=== PATIENT | female | born 1940 | race Caucasian/White ===

== ENCOUNTER → 2018-01-15 22:01 | Outpatient (REF) | payer MEDICARE, OTHER, SELFPAY ==
[2018-01-15 22:05] LABS: Bacteria Urine None Seen; RBC Urine None Seen (0-5/HPF); WBC Urine None Seen (0-5/HPF)
[2018-01-15 22:56] LABS: Alanine Aminotransferase 32 IU/L (9-52); Albumin 4.3 g/dL (3.5-5.0); Albumin Globulin Ratio 1.6 (1.0-2.8); Alkaline Phosphatase 63 U/L (38-126); Aspartate Aminotransferase 25 IU/L (14-36); BUN Creatinine Ratio 31.4 (6-22); Bilirubin Total 0.9 mg/dL (0.2-1.3); Blood Urea Nitrogen 22 mg/dL (7-17); Carbon Dioxide 27 mmol/L (22-32); Chloride 103 mmol/L (98-107); Cholesterol 154 mg/dL (140-199); Estimated Glomerular Filt Rate > 60.0 mL/min (>60); Globulin 2.7 g/dL (1.7-4.1); Glucose 89 mg/dL (80-110); HDL Cholesterol 67 mg/dL (40-60); HEMOLYSIS < 15 (0-50); LDL Cholesterol Calculated 75 mg/dL (<100); Potassium 4.4 mmol/L (3.4-5.1); Sodium 142 mmol/L (137-145); Triglycerides 61 mg/dL (35-150)
[2018-01-15 23:25] LABS: Add Manual Diff / Slide Review NO; Basophils Percent Auto 0.6 % (0-2); Eosinophils Percent Auto 2.3 % (2-4); Hematocrit 43.7 % (36-46); Hemoglobin 15.3 g/dL (12.0-16.0); Lymphocytes Percent Auto 20.7 % (25-40); Mean Corpuscular HGB Conc 34.9 % (30-36); Mean Corpuscular Hemoglobin 32.1 PG (26-34); Mean Corpuscular Volume 91.9 fL (80-100); Neutrophils Absolute Auto 4200 /uL (3000-5900); Neutrophils Percent Auto 70.4 % (50-75); Platelet Count 292 X10^3/uL (150-400); Red Blood Cell Count 4.76 X10^6/uL (4.0-5.2); Red Cell Distribution Width 12.9 % (11.6-14.8); White Blood Cell Count 5.9 X10^3/uL (4.5-11.0)
[2018-01-15 23:26] LABS: TSH w/ Reflex to FT4 3.98 uIU/mL (0.47-4.68)
[2018-01-15 23:29] LABS: Ferritin 19.4 ng/mL (11.1-264)
[2018-01-15 23:39] LABS: Appearance Urine UA CLEAR; Bilirubin Urine UA NEGATIVE (NEGATIVE); Color Urine UA YELLOW; Glucose Urine UA NEGATIVE (Normal); Ketones Urine UA NEGATIVE (NEGATIVE); Leukocyte Esterase Urine UA NEGATIVE (NEGATIVE); Nitrite Urine UA NEGATIVE (Negative); Occult Blood Urine UA NEGATIVE (Negative); Protein Urine UA NEGATIVE (Negative); Urobilinogen Urine UA 0.2 E.U./dL (0.2); pH Urine UA 6.5 (4.5-8.0)
[2018-01-16 01:45] LABS: Squamous Epithelial Cell Urine 1-5 /HPF
[2018-01-16 01:46] LABS: Culture Indicated Urine Cult Not Indicated
[2018-01-17 15:46] LABS: Progesterone 1.9 ng/mL
[2018-01-19 07:23] LABS: Estrogen 687.4 pg/mL
[2018-01-19 15:56] LABS: Testosterone Free 19.3 pg/mL (0.2-3.7); Testosterone Total 438 ng/dL (2-45)
== END ==
LOC: LAB 22:01
PROVIDERS: Visit Provider Family Medicine
DX: Z00.00 Encounter for general adult medical examination without abnormal findings (principal); R68.82 Decreased libido; R79.89 Other specified abnormal findings of blood chemistry; R53.83 Other fatigue; N95.1 Menopausal and female climacteric states
CPT/HCPCS: 36415; 80053; 80061; 81001; 82672; 82728; 83001; 83002; 84144; 84402; 84403; 84443; 85025

== ENCOUNTER → 2018-02-08 03:37 | Outpatient (REF) | payer MEDICARE, SELFPAY | LOC: LAB 03:37 | PROVIDERS: Visit Provider Family Medicine | DX: T14.90XA Injury, unspecified, initial encounter (principal); V93.38XA Fall on board other unpowered watercraft, initial encounter | CPT/HCPCS: 36415; 82310; 83970 ==

== ENCOUNTER → 2018-04-25 21:29 | Outpatient (REF) | payer MEDICARE, SELFPAY ==
[2018-04-26 00:02] LABS: Add Manual Diff / Slide Review NO; Basophils Absolute Auto 0 /uL (0-100); Basophils Percent Auto 0.6 % (0-2); Eosinophils Absolute Auto 100 /uL (0-450); Eosinophils Percent Auto 1.8 % (2-4); Hematocrit 44.2 % (36-46); Lymphocytes Absolute Auto 1200 /uL (1100-4500); Lymphocytes Percent Auto 16.8 % (25-40); Mean Corpuscular Hemoglobin 31.1 PG (26-34); Mean Corpuscular Volume 91.5 fL (80-100); Monocytes Absolute Auto 300 /uL (0-900); Monocytes Percent Auto 4.8 % (3-14); Neutrophils Absolute Auto 5300 /uL (1500-7000); Platelet Count 308 X10^3/uL (150-400); Red Blood Cell Count 4.83 X10^6/uL (4.0-5.2); Red Cell Distribution Width 12.8 % (11.6-14.8)
[2018-04-26 00:33] LABS: Alanine Aminotransferase 30 IU/L (9-52); Albumin 4.5 g/dL (3.5-5.0); Albumin Globulin Ratio 1.6 (1.0-2.8); Alkaline Phosphatase 70 U/L (38-126); Aspartate Aminotransferase 26 IU/L (14-36); BUN Creatinine Ratio 32.5 (6-22); Bilirubin Total 0.8 mg/dL (0.2-1.3); Blood Urea Nitrogen 26 mg/dL (7-17); Calcium 9.9 mg/dL (8.4-10.2); Carbon Dioxide 27 mmol/L (22-32); Chloride 102 mmol/L (98-107); Estimated Glomerular Filt Rate > 60.0 mL/min (>60); Globulin 2.9 g/dL (1.7-4.1); Glucose 91 mg/dL (80-110); HEMOLYSIS < 15 (0-50); Potassium 4.5 mmol/L (3.4-5.1); Sodium 138 mmol/L (137-145); Total Protein 7.4 g/dL (6.3-8.2)
[2018-04-27 16:47] LABS: Progesterone < 0.5 ng/mL
[2018-04-30 15:06] LABS: Estrogen 96.5 pg/mL
[2018-04-30 15:37] LABS: Parathyroid Hormone Int 46 pg/mL (14-64)
== END ==
LOC: LAB 21:29
PROVIDERS: Visit Provider Family Medicine
DX: D35.1 Benign neoplasm of parathyroid gland (principal); R53.83 Other fatigue; Z79.899 Other long term (current) drug therapy
CPT/HCPCS: 36415; 80053; 82672; 83970; 84144; 84402; 84403; 85025

== ENCOUNTER 2020-10-15 13:59 | Emergency (ER) | payer MEDICARE, SELFPAY ==
[2020-10-15 14:11] VITALS: BP 173/78; PULSE 85; RESP 18; TEMP 36.4; O2SAT 100; BMI 20.9
--- NOTE | 2020-10-15 14:13 | DI.RAD.S_ITS ---
PROCEDURE: XR HAND RT MIN 3V INDICATIONS: crush injury with laceration TECHNIQUE: 3 views of the hand(s) acquired. COMPARISON: None. FINDINGS: Bones: No fractures or dislocations. Carpal bones are normally aligned. No suspicious bony lesions. 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 Soft tissues: No suspicious soft tissue calcifications. IMPRESSION: No visualized acute fracture or dislocation. However, if clinical concern and/or pain persist, short interval imaging followup in 7-10 days is recommended, as occult injury cannot be definitively excluded. Dictated by: Jenniffer Hurd M.D. on 10/15/2020 at 14:35 Approved by: Jenniffer Hurd M.D. on 10/15/2020 at 14:36
--- NOTE | 2020-10-15 14:13 | ED_ITS ---
HPI - General Adult General Chief complaint: Extremity Injury, Upper Stated complaint: Hand crushed Time Seen by Provider: 10/15/20 14:05 Source: patient Mode of arrival: EMS History of Present Illness HPI narrative: [age] year old female who is right-hand dominant to his here for evaluation of injuries that she sustained when she crushed her right hand in between to boats. She did sustain a large laceration to the back of her right hand. Was covered with a bandage prior to arrival. She is up-to-date on her tetanus. She does state she has minimal discomfort. There was concern about tendon involvement. Related Data Previous Rx's Medication Instructions Recorded cephalexin 500 mg capsule 500 mg PO QID 5 Days #20 cap 10/15/20 Allergies Allergy/AdvReac Type Severity Reaction Status Date / Time No Known Drug Allergies Allergy Verified 10/15/20 14:11 Review of Systems Constitutional Constitutional: Reports system reviewed and no additional complaints, except as documented Musculoskeletal Musculoskeletal: Reports as per HPI Integumentary/Breasts Skin/Breast: Reports as per HPI Neurologic Neurologic: Reports system reviewed and no additional complaints, except as documented Hematologic/Lymphatic On Anticoagulants: No Patient History Social History Smoking Status: Never smoker Exam Initial Vital Signs Initial Vital Signs: Vital Signs Temperature 97.5 F L 10/15/20 14:11 Pulse Rate 85 10/15/20 14:11 Respiratory Rate 18 10/15/20 14:11 Blood Pressure 173/78 H 10/15/20 14:11 Pulse Oximetry 100 10/15/20 14:11 HENAL Head: normal to inspection and normocephalic Resp Effort & Inspection: normal respiratory effort Cardio Pulses: radial pulses present on the right Skin Other: Patient has a large irregular laceration and a ?V ?shape on the dorsum of the right hand. No active bleeding. Neuro General: patient alert, patient awake and moves all extremities Extrem Other: Patient has minimal tenderness to the right hand. She can flex and extend at the MCP D IP and PIP joints of all of her fingers both active and passive both against resistance and not without any issues. Does not appear to be any joint involvement. There is a small exposure of the tendon on the dorsum of the right middle finger however does not appear to be any tendon lacerations. Procedures Laceration Repair Laceration 1: Site: hand Side (If applicable): right Size (cm): 20 Description: flap Depth: simple, single layer Local Anesthetic: lidocaine 1% and with bicarb Amount of anesthesia used (mL): 8 Pre-repair: wound explored, irrigated extensively and deep structures intact Skin layer closed with: nylon Size (cm): 4-0 Number of sutures: 23 Technique: simple, interrupted Course Orders Ordered: ED Orders 10/15/20 14:13 XR hand RT min 3V Stat Discontinued Medications Bacitracin (Bacitracin Oint 0.9 Gm Pckt) 1 applic TOP NOW ONE Stop: 10/15/20 14:11 Last Admin: 10/15/20 15:30 Dose: 1 applic Documented by: CTRSouthHANDER Lidocaine/Sodium Bicarbonate (Lido 1%/Sod Bicarb 8.4% (10ml) 10 Ml Syringe) 10 ml INJ NOW ONE Stop: 10/15/20 14:11 Last Admin: 10/15/20 15:00 Dose: 10 ml Documented by: CTRANGELA Vital Signs Vital signs: Vital Signs - 8 hr 10/15/20 14:11 Temperature 97.5 F L Pulse Rate 85 Respiratory Rate 18 Blood Pressure 173/78 H Pulse Oximetry 100 Medical Decision Making Imaging Data Extremity x-ray #1: Radiologist's Impression: [place] [address] XRay Report Signed Patient: Mirna Blackwell MR#: [id number] : 1940 Acct:[id number] Age/Sex: 80 / F Date of Service: 10/15/20 Loc: ED Accession Number: [id number] ?? Procedure: XR hand RT min 3V Ordering Provider: Carlos Joseph D.O. PROCEDURE:? XR HAND RT MIN 3V ? INDICATIONS:? crush injury with laceration ? TECHNIQUE:? 3 views of the hand(s) acquired.? ? COMPARISON:? None. ? FINDINGS:? ? Bones:? No fractures or dislocations.? Carpal bones are normally aligned.? No suspicious bony lesions.? 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 ? Soft tissues:? No suspicious soft tissue calcifications.? ? ? IMPRESSION:? No visualized acute fracture or dislocation. However, if clinical concern and/or pain persist, short interval imaging followup in 7-10 days is recommended, as occult injury cannot be definitively excluded. ? ? Dictated by: Jenniffer Hurd M.D. on 10/15/2020 at 14:35 ? ? Approved by: Jenniffer Hurd M.D. on 10/15/2020 at 14:36? MDM Narrative Medical decision making narrative: Patient's x-ray shows no fracture. Her wound was closed as described above. There was no deep tendon injury noted. Patient was given care instructions and return precautions. We will place her on antibiotics given the nature of the wound. She is up-to-date on tetanus already. She was given return precautions and follow-up instructions. She expressed understanding and agreement. Discharge Plan Departure Patient Disposition: Home Clinical Impression: Hand laceration Instructions: DI for Laceration Repair Activity Restrictions/Additional Instructions: The stitches do need to be removed in 7-10 days. You can either come to the walk-in clinic or your primary doctor for this. Until then keep the bandage that was placed today on for the next 24 hours. After that you can take it off. You can wash your hands like normal but do not soak them in anything until the stitches have been removed. You can place topical antibiotic ointment over the area. Return to the emergency department for any new or worsening symptoms Prescriptions: New cephalexin 500 mg capsule 500 mg PO QID 5 Days Qty: 20 RF: 0
[2020-10-15] MEDS: LIDO 1%/SOD BICARB 8.4% (10ML) 10 ML SYRINGE INJ (15:00)
--- NOTE | 2020-10-15 15:10 | PC.NURSE ---
R hand lac irrigated with 500mls NS at high pressure. Pt tolerated well. No evidence of debris left.
--- NOTE | 2020-10-15 15:20 | PC.NURSE ---
Dr. Joseph at bedside performing sutures. Pt tolerating well.
[2020-10-15] MEDS: BACITRACIN OINT 0.9 GM PCKT 1 APPLIC TOP (15:30)
--- NOTE | 2020-10-15 15:55 | PC.NURSE ---
Dressing applied to suture site. Pt education about suture care performed.
== END 2020-10-15 16:07 | disposition home or self-care (01) ==
PROVIDERS: Emergency Provider Emergency Medicine
DX: S61.412A Laceration without foreign body of left hand, initial encounter (principal); W23.0XXA Caught, crushed, jammed, or pinched between moving objects, initial encounter
CPT/HCPCS: 12005; 73130; 99283

== ENCOUNTER 2024-08-21 11:15 | Emergency (ER) | payer MEDICARE, SELFPAY ==
[2024-08-21 11:21] VITALS: BP 196/97; PULSE 91; RESP 18; TEMP 36.7; O2SAT 99; BMI 23.4
--- NOTE | 2024-08-21 12:48 | ED.WOUNDLAC ---
HPI - Wound/Laceration <Guerda Piña PA-C - Last Filed: 08/21/24 19:24> General Chief Complaint: Wound/Laceration Stated Complaint: Might need stitches, left hand Time Seen by Provider: 08/21/24 12:47 Source: patient Mode of arrival: Ambulatory History of Present Illness HPI narrative: Ms. Blackwell is a pleasant 84-year-old female who denies any past medical history that presents to the emergency department for a left hand laceration that occurred prior to arrival. Patient states that she was walking at a [place] when she tripped and fell forward landing with both of her arms outstretched. She sustained abrasions to the right hand and right kneecap and small lacerations on the palm of the left hand as well. She did not hit her head. She denies any pain with movement of any joints, no pain of her hands, wrists, elbows, shoulders, neck, back, head, lower extremities. She does however have pain overlying the right knee abrasion and left hand lacerations. She is unsure of her last tetanus shot. She is not on any blood thinners. Related Data Allergies Allergy/AdvReac Type Severity Reaction Status Date / Time No Known Drug Allergies Allergy Verified 08/21/24 11:21 Review of Systems <Guerda Piña PA-C - Last Filed: 08/21/24 19:24> Review of Systems ROS Unobtainable: All systems reviewed & are unremarkable except as noted in HPI and below Patient History <Guerda Piña PA-C - Last Filed: 08/21/24 19:24> Social History Smoking Status: Never smoker Smoking Status: Never smoker Exam <Guerda Piña PA-C - Last Filed: 08/21/24 19:24> Narrative Exam Narrative: GENERAL: 84 year old patient appears stated age. Well-developed patient, in no acute distress. HEAD: Atraumatic. Normocephalic. EYES: Extraocular motions intact. No scleral icterus. No injection or drainage. NECK: Trachea midline. Cervical ROM intact. CARDIOVASCULAR: Regular rate and rhythm. RESPIRATORY: ?Nonlabored respirations. ?Speaking in clear, full sentences. ?Clear to auscultation. EXTREMITIES: Abrasion/superficial flap right anterior knee. 2 cm linear laceration on the palmar aspect of the left hand just proximal to the MCP joint line. 0.5 cm linear laceration just proximal to the 4th MCP on the palmar side as well. Superficial abrasion right palm. Full range of motion and no bony tenderness of bilateral hands. No anatomical snuffbox tenderness. No wrist tenderness. Bleeding controlled with direct pressure. BACK: Nontender without deformity or crepitance. NEURO: AOx3. ?Clear speech. ?Moves all 4 extremities appropriately. SKIN: Superficial abrasions and left hand lacerations described above. No rashes. Skin is warm and dry. Initial Vital Signs Initial Vital Signs: Vital Signs Temperature 98.1 F 08/21/24 11:21 Pulse Rate 91 H 08/21/24 11:21 Respiratory Rate 18 08/21/24 11:21 Blood Pressure 196/97 H 08/21/24 11:21 Pulse Oximetry 99 08/21/24 11:21 Oxygen Delivery Method Room Air 08/21/24 11:21 <Francois Doss MD - Last Filed: 09/01/24 21:05> Initial Vital Signs Initial Vital Signs: Vital Signs Temperature 98.1 F 08/21/24 11:21 Pulse Rate 91 H 08/21/24 11:21 Respiratory Rate 18 08/21/24 11:21 Blood Pressure 196/97 H 08/21/24 11:21 Pulse Oximetry 99 08/21/24 11:21 Oxygen Delivery Method Room Air 08/21/24 11:21 Procedures <SUYAPA Can Last Filed: 08/21/24 19:24> Laceration Repair Laceration 1: Site: hand (palm) Side (If applicable): left Size (cm): 2 Description: linear Depth: simple, single layer Local Anesthetic: lidocaine 1% and with epi Amount of anesthesia used (mL): 3 Pre-repair: wound explored, irrigated extensively (cleansed with betadine) and deep structures intact Skin layer closed with: nylon Skin layer suture size: 5-0 Number of sutures: 5 Technique: simple, interrupted Course <SUYAPA Can Last Filed: 08/21/24 19:24> Orders Ordered: Discontinued Medications Bacitracin (Bacitracin Oint 0.9 Gm Pckt) 1 applic TOP NOW ONE Stop: 08/21/24 12:59 Last Admin: 08/21/24 13:19 Dose: 1 applic Documented By: KOJO Diphtheria/Tetanus/Acell Pertussis (Tet,Diph,Pertuss(Acell),Vac/Pf 0.5 Ml Syringe) 0.5 ml IM .ONCE ONE Stop: 08/21/24 12:59 Last Admin: 08/21/24 13:17 Dose: 0.5 ml Documented By: KOJO Lidocaine/Epinephrine (Lidocaine 1% W/Epi 10ml) 5 ml INJ INTRA-OP ONE Stop: 08/21/24 12:59 Last Admin: 08/21/24 13:17 Dose: 5 ml Documented By: KOJO Vital Signs Vital signs: Vital Signs - 8 hr 08/21/24 11:21 08/21/24 14:19 Temperature 98.1 F 98.6 F Pulse Rate 91 H 71 Respiratory Rate 18 16 Blood Pressure 196/97 H 189/84 H Pulse Oximetry 99 100 Oxygen Delivery Method Room Air Room Air <Francois Doss MD - Last Filed: 09/01/24 21:05> Orders Ordered: Discontinued Medications Bacitracin (Bacitracin Oint 0.9 Gm Pckt) 1 applic TOP NOW ONE Stop: 08/21/24 12:59 Last Admin: 08/21/24 13:19 Dose: 1 applic Documented By: KOJO Diphtheria/Tetanus/Acell Pertussis (Tet,Diph,Pertuss(Acell),Vac/Pf 0.5 Ml Syringe) 0.5 ml IM .ONCE ONE Stop: 08/21/24 12:59 Last Admin: 08/21/24 13:17 Dose: 0.5 ml Documented By: KOJO Lidocaine/Epinephrine (Lidocaine 1% W/Epi 10ml) 5 ml INJ INTRA-OP ONE Stop: 08/21/24 12:59 Last Admin: 08/21/24 13:17 Dose: 5 ml Documented By: KOJO Vital Signs Vital signs: Vital Signs - 8 hr 08/21/24 11:21 08/21/24 14:19 Temperature 98.1 F 98.6 F Pulse Rate 91 H 71 Respiratory Rate 18 16 Blood Pressure 196/97 H 189/84 H Pulse Oximetry 99 100 Oxygen Delivery Method Room Air Room Air MDM - Wound/Laceration <Guerda Piña PA-C - Last Filed: 08/21/24 19:24> Medical Records Attestation: I reviewed the patient's medical records. Medical records narrative: Prior hand laceration 10/15/2020. [facility] Narrative Medical decision making narrative: 84-year-old female who denies any past medical history that presents to the emergency department for a left hand laceration that occurred prior to arrival. Differential diagnosis includes but is not limited to left hand laceration, abrasions, sprain, strain, contusion, fracture, etc. On exam patient is in no acute distress, nontoxic appearing, heart rate and blood pressure are slightly elevated in triage. Patient has 2 small superficial lacerations on the palmar aspect of the left hand. She still has full range of motion of the left hand, is neurovascularly intact, has brisk cap refill, sensation intact to light touch, and no bony tenderness. She declines need for x-ray. Superficial abrasion on the right knee as well. She did not hit her head or sustain any other injuries. We will update Tdap, proceed with band director, cleansing irrigation and repair left hand lacerations. Two small lacerations of the left hand were repaired using 3 simple interrupted sutures for the large laceration and 2 simple interrupted sutures for the smaller laceration. Patient tolerated the procedure extremely well and bacitracin and nonadherent dressing was applied. Tdap was updated. Discussed proper wound care, signs symptoms of infection and reasons to return to the ED. Recommended suture removal in 10-14 days. Patient verbalized understanding all information and is agreeable with the plan. She is eager for discharge home and she is stable for discharge at this time. Discharge Plan Departure Patient Disposition: Home Clinical Impression: Ground-level fall Laceration of left hand Qualifiers: Encounter type: initial encounter Foreign body presence: without foreign body Qualified Code(s): S61.412A - Laceration without foreign body of left hand, initial encounter Abrasion of knee, right Qualifiers: Encounter type: initial encounter Qualified Code(s): S80.211A - Abrasion, right knee, initial encounter Instructions: DI for Laceration Repair Activity Restrictions/Additional Instructions: Dear [place], Today you had a laceration to your left. We have placed 5 sutures. They need to be removed in 10-14 days. You may do this in your doctor's office, the [id number], or here if necessary. Please keep the dressing on your wound clean, dry, and intact for the next 24 hours. After this time, you may remove the dressing and gently clean the wound with soap and water, then pat dry. Keep the wound clean and covered. Avoid soaking the wound in any water such as a bath, pool, or the ocean. If you develop any signs of wound infection such as increased redness, pus drainage, streaking redness, or fevers, please return to the ER immediately for evaluation. Once sutures are removed and the wound has healed, apply sunscreen daily to reduce the appearance of scars. We updated your tetanus shot today. Please follow up with your primary care doctor within the next 2-3 days for ER follow-up. (If you do not have a PCP you can call [phone]. ?to schedule an appointment with an [facility] Primary Care Provider) IF YOU DEVELOP ANY NEW OR WORSENING SYMPTOMS, RETURN TO THE ER! Please read the attached instructions, they highlight more specific treatments and interventions for you at home. Thank you for letting me participate in your care, Guerda Piña PA-C Stand Alone Forms: Patient Portal/API ED Sign-out <Francois Doss MD - Last Filed: 09/01/24 21:05> Cosign ED Attending Cossandraature Attestation: I was immediately available in the department for consultation. ?This documentation has been reviewed and I agree with assessment and plan. Supervised by Francois Doss MD
[2024-08-21] MEDS: LIDOCAINE 1% W/EPI 10ML 5 ML INJ (13:17)
[2024-08-21] MEDS: TET,DIPH,PERTUSS(ACELL),VAC/PF 0.5 ML SYRINGE IM (13:17)
[2024-08-21] MEDS: BACITRACIN OINT 0.9 GM PCKT 1 APPLIC TOP (13:19)
--- NOTE | 2024-08-21 14:09 | PC.NURSE ---
Trip and fall on sidewalk. No blood thinners. Did no hit head. - LOC
[2024-08-21 14:19] VITALS: BP 189/84; PULSE 71; RESP 16; TEMP 37; O2SAT 100
== END 2024-08-21 14:20 | disposition home or self-care (01) ==
PROVIDERS: Emergency Provider Physician Assistant
DX: S61.412A Laceration without foreign body of left hand, initial encounter (principal); S80.211A Abrasion, right knee, initial encounter; W01.0XXA Fall on same level from slipping, tripping and stumbling without subsequent striking against object, initial encounter; Z23 Encounter for immunization
CPT/HCPCS: 12001; 90471; 99283; 90715